=== PATIENT | male | born 1945 | race Two or more races ===

== ENCOUNTER 2024-01-12 10:59 | Inpatient (IN) | payer OTHER ==
[~2024-01-12] VITALS: Ht 162.6 cm; Wt 55.8 kg
--- NOTE | 2024-01-12 12:05 | ED.PDOC ---
General HPI Comments 78-year-old male patient with no past medical history presented with complaints of urinary frequency, dysuria, urinary pressure associated with nausea and vomiting. The vomiting episode happened today at around 0800 hours which did not contain any blood. Patient had associated chills. Patient was recently prescribed Bactrim for similar complaints two weeks ago, which she took for 10 days and then had resolution of symptoms but symptoms again started two days ago. At that time he also had hematuria that resolved, but during this visit he did not complain of any hematuria. He denied any complaints of chest pain, shortness of breath, dizziness, headache. Past medical history No known medical history Past surgical history Denied any surgeries Medication history Does not take any medication Allergic history No known allergies Family history Does not remember Social history Denied smoking, occasional alcohol intake, denied marijuana/any other drug intake ROS Constitutional: Chills No: Fever, Sweats, Weakness, Malaise, Other Cardiovascular: No: Chest Pain, Palpitations, Orthopnea, Paroxysmal Noc. Dyspnea, Edema, Lt Headedness, Other Gastrointestinal: No: Nausea, Vomiting, Abdominal Pain, Diarrhea, Constipation, Melena, Hematochezia, Other Musculoskeletal: No: other, neck pain, shoulder pain, arm pain, back pain, hand pain, leg pain, foot pain Neurological:; No: Weakness, Numbness, Incoordination, Change in speech, Confusion, Seizures Examination General Appearance: Alert, Oriented X3, Cooperative, No acute distress Respiratory: Clear to auscultation, Normal air movement Cardiovascular: Regular rate, Normal S1, Normal S2 Abdominal: Soft, no tenderness Extremities: No cyanosis, No edema, Normal pulses, No tenderness/swelling Skin: No rashes, No breakdown Neuro: Normal speech, tone Attestation note: Dr. Seth: I was the supervising attending for this ED encounter. Please see the resident's notes. I was available for questions and consultations. MDM: Patient presented with the above HPI.---urinary symptoms---workup was initiated. patient was found with the above mentioned diagnosis. Patient was given: Fluids and Zofran and antibiotics Patient ED course and VS have been stabilized. Patient has been reassessed in the ED and remained in a stable condition. Pertinent incidental findings were discussed with the patient and/or family. Patient/family voices understanding and is agreeable with plan. Patient has been observed in the ED adequate length of time to insure improvement/stability. patient was admitted to the medicine team for further evaluation and treatment of their presentation. All the reports of any imaging studies that were ordered by myself were reviewed by myself. Chief Complaint: Urinary Time Seen by MD: 11:12 Reviewed notes: Nurses Notes, Allergies Allergies: Coded Allergies: NO KNOWN ALLERGIES (Unverified , 01/12/24) Home Meds Active Scripts Cephalexin Monohydrate (Cephalexin) 500 Mg Cap, 2 CAP PO TID for 7 Days, #42 CAP Prov:FABIEN RUSSELL MD 01/15/24 Information Source: Patient Mode of Arrival: Ambulatory Past Medical History Past Medical History (Other): Mentioned in the note Constitutional: reports: others (Mentioned in the note) EENTM: reports: others (Mentioned in the note) Respiratory: reports: others (Mentioned in the note) Cardiovascular: reports: others (Mentioned in the note) Gastrointestinal: reports: others (Mentioned in the note) Genitourinary: reports: others (Mentioned in the note) Neurological: reports: others (Mentioned in the note) Musculoskeletal: reports: others (Mentioned in the note) Integumetry: reports: others (Mentioned in the note) Physical Exam General Appearance: Other (Mentioned in the note) HEENT: Other (Mentioned in the note) Neck: Other (Mentioned in the note) Respiratory: Other (Mentioned in the note) Cardiovascular: Other (Mentioned in the note) Breast Exam: Deferred Gastrointestinal: Other (Mentioned in the note) Genitalia: Deferred Pelvic: Deferred Rectal: Other (Mentioned in the note) Extremities: Other (Mentioned in the note) Neurologic: Other (Mentioned in the note) Cerebellar Function: Other (Mentioned in the note) Reflexes: Other (Mentioned in the note) Skin: Other (Mentioned in the note) Lymphatic: Other (Mentioned in the note) Was a procedure done? Was a procedure done?: No Differential Diagnosis Kidney stone (Female): N/A Urinary Problem (Male): UTI, Other (MALE URINARY PROBLEMSDDX BPH, OBSTRUCTING NEOPLASM, BLADDER PATHOLOGY, OBSTRUCTION STONE. PHYMOSIS/PAPRPHYMOSIS, CAUDA EQUINA SYNDROME, UTI.) X-Ray, Labs, Meds, VS Vital Signs Date Time Temp Pulse Resp B/P (MAP) Pulse Ox O2 Delivery O2 Flow Rate FiO2 01/12/24 12:55 105 22 94 Room Air* 0 21 01/12/24 12:54 99.7 105 22 143/81 (101) 94 99.7 01/12/24 11:27 98.7 89 16 151/73 (99) 94 Lab Test 01/12/24 13:53 01/12/24 11:40 01/12/24 10:51 Range/Units Lactic Acid Level 1.1 2.4 *H 0.4-2.0 mmol/L Urine Color Light-yellow Yellow Urine Clarity Turbid H Clear Urine pH 5.5 5.0-9.0 Urine Specific [place] 1.015 1.001-1.035 Urine Protein 1+ H Negative Urine Ketones Negative Negative Urine Blood 2+ H Negative /uL Urine Nitrite Negative Negative Urine Bilirubin Negative Negative Urine Urobilinogen Normal Negative mg/dL Urine Leukocyte Esterase 3+ Negative /uL Urine RBC 19 0 - 3 /hpf Urine WBC 689 0 - 3 /hpf Urine WBC Clumps Present None Seen /hpf Urine Squamous Epithelial Cells Few <5 /hpf Urine Bacteria Few H None Seen /hpf Urine Mucus Few None Seen Urine Glucose Normal Normal mg/dL White Blood Count 19.8 H 4.4-10.8 10^3/uL Red Blood Count 4.89 4.5-5.90 10^6/uL Hemoglobin 14.9 13.5-17.5 g/dL Hematocrit 43.3 41.0-53.0 % Mean Corpuscular Volume 88.6 80.0-100.0 fL Mean Corpuscular Hemoglobin 30.4 28.0-32.0 pg Mean Corpuscular Hemoglobin Concent 34.3 32.0-36.0 g/dL Red Cell Distribution Width 13.9 11.8-14.3 % Platelet Count 354 140-450 10^3/uL Mean Platelet Volume 8.1 6.9-10.8 fL Neutrophils (%) (Auto) 87.9 H 37.0-80.0 % Lymphocytes (%) (Auto) 7.0 L 10.0-50.0 % Monocytes (%) (Auto) 4.7 0.0-12.0 % Eosinophils (%) (Auto) 0.0 0.0-7.0 % Basophils (%) (Auto) 0.4 0.0-2.0 % Neutrophils # (Auto) 17.4 H 1.6-8.6 10 ^3/uL Lymphocytes # (Auto) 1.4 0.4-5.4 10 ^3/uL Monocytes # (Auto) 0.9 0-1.3 10 ^3/uL Eosinophils # (Auto) 0 0-0.8 10 ^3/uL Basophils # (Auto) 0.1 0-0.2 10 ^3/uL Nucleated Red Blood Cells 0.0 % Sodium Level 135 L 136-145 mmol/L Potassium Level 4.0 3.5-5.1 mmol/L Chloride Level 102 98-107 mmol/L Carbon Dioxide Level 24 20-31 mmol/L Anion Gap 9 5-15 Blood Urea Nitrogen 14 9-23 mg/dL Creatinine 1.32 H 0.700-1.30 mg/dL Glomerular Filtration Rate Calc 56 >90 mL/min BUN/Creatinine Ratio 10.6 10.0-20.0 Serum Glucose 127 H 74-106 mg/dL Calcium Level 10.4 8.7-10.4 mg/dL Total Bilirubin 1.2 H 0.2-1.0 mg/dL Aspartate Amino Transferase (AST) 25 13-40 U/L Alanine Aminotransferase (ALT) 29 7-40 U/L Alkaline Phosphatase 112 46-116 U/L Total Protein 8.5 H 5.7-8.2 g/dL Albumin 4.9 H 3.2-4.8 g/dL Microbiology Date/Time Source Procedure Growth Status 01/12/24 11:40 Voided Urine Urine Culture - Final Escherichia coli Complete 01/12/24 10:51 Blood Blood Culture - Final Escherichia coli Complete [place] [address] Ph: [phone] DIAGNOSTIC IMAGING Diagnostic Imaging Report : [id number] Signed PATIENT: PABLITO CORDOBA ACCT: [id number] UNIT: [id number] : 1945 LOC: ER ROOM / BED: / AGE / SEX: 78 / M ADM STATUS: REG ER SERVICE 1137 ORDERING PHYSICIAN: ROYCE LEIVA RESIDENT PROCEDURE(s): ABPL - CT AB PEL WO CON-NO ORAL OR IV REASON: uti ORDER NUMBER(s): [id number], ACCESSION NUMBER(s): [id number] CT ABDOMEN AND PELVIS WITHOUT CONTRAST CLINICAL HISTORY: uti TECHNIQUE: Multiple contiguous axial images of the abdomen and pelvis without intravenous contrast. The images were reformatted degenerate coronal and sagittal reconstructions. All CT scans at this medical facility are performed using dose modulation techniques as appropriate to a performed exam including the following:Automated exposure control was utilized; adjustment of the MA and/or KV according to patient size; and use of iterative reconstruction technique. Radiation Dose Information: CT Dose: CTDI volume is 5.44 mGy. Dose-length product is 316.46 mGy*cm Comparison: None FINDINGS: Evaluation of the abdomen and pelvis is limited without intravenous contrast. There is a 1.0 cm calculus in the left renal pelvis. There is no right renal calculus. There is no evidence of hydronephrosis. There is no evidence of a ureteral calculus or hydroureter. The liver, gallbladder, pancreas, adrenal glands, and spleen appear within normal limits. There is no gross evidence of abdominal lymphadenopathy. There is no free fluid or free air. The stomach appears within normal limits. The small and large bowel loops demonstrate normal caliber. There are multiple diverticula in the sigmoid colon without evidence of acute diverticulitis. The abdominal aorta and IVC appear within normal limits. The bladder is decompressed limiting evaluation. There is circumferential bladder wall thickening. Pelvic organ appears within normal limits. There is no evidence of a pelvic mass or lymphadenopathy. There is no free fluid collection. Lung bases are clear. There is no acute osseous abnormality. IMPRESSION: 1. There is a 1.0 cm calculus in the left renal pelvis without evidence of hydronephrosis. 2. The bladder is decompressed limiting evaluation. The bladder does demonstrate circumferential wall thickening which May relate to cystitis. Clinical correlation is recommended. 3. Sigmoid diverticulosis without evidence of acute diverticulitis. HS:Y ATED BY: JAX BRAMBILA MD DICTATED DATE/TIME: 01/12/241208 SIGNED BY: JAX BRAMBILA MD SIGNED DATE/TIME: 01/12/241208 CC: [place] [address] Ph: [phone] DIAGNOSTIC IMAGING Diagnostic Imaging Report : [id number] Signed PATIENT: PABLITO CORDOBA ACCT: [id number] UNIT: [id number] : 1945 LOC: ER ROOM / BED: / AGE / SEX: 78 / M ADM STATUS: REG ER SERVICE 1137 ORDERING PHYSICIAN: ROYCE LEIVA RESIDENT PROCEDURE(s): CXRP - CHEST PORTABLE REASON: VOMITITING ORDER NUMBER(s): [id number], ACCESSION NUMBER(s): [id number] CHEST RADIOGRAPH Indication: VOMITITING Technique: Single frontal view of the chest was obtained COMPARISON: None FINDINGS: Lines and Tubes: None Lungs: Clear Pleura: No effusion. No pneumothorax. Cardiomediastinal contours: Unremarkable Bones: Unremarkable IMPRESSION: No acute disease. ATED BY: JONATHAN AGUILAR MD DICTATED DATE/TIME: 01/12/241209 SIGNED BY: JONATHAN AGUILAR MD SIGNED DATE/TIME: 01/12/241209 CC: Time of 1ST Reevaluation: 13:00 Reevaluation 1ST: Unchanged Patient Education/Counseling: Diagnosis, Treatment Family Education/Counseling: No Family Present Comments Patient presented with the above HPI- dysuria, frequency, chills, vomiting. workup was initiated including routine labs, urine culture, blood culture, lactic acid levels. Patient was given: IV fluids, [place] [address], urine routine showed evidence of UTI. Was started on IV Rocephin Patient ED course and VS have been stabilized. Patient has been reassessed in the ED and remained in a stable condition. Pertinent incidental findings were discussed with the patient and/or family. Patient/family voices understanding and is agreeable with plan. Patient has been observed in the ED adequate length of time to insure improvement/stability. patient was admitted to the medicine team for further evaluation and treatment of their presentation. Patient needs hydration, further workup with urine culture, blood culture results, evaluation for sepsis. All the reports of any imaging studies that were ordered by myself were reviewed by myself. Departure 1 Departure Time of Disposition: 12:43 Impression: Primary Impression: UTI (urinary tract infection) Additional Impressions: Leukocytosis Sepsis Elevated lactic acid level Disposition: ADMITTED INPATIENT Admit to: Tele Condition: Guarded e-Prescriptions Cephalexin Monohydrate (Cephalexin) 500 Mg Cap 2 CAP PO TID for 7 Days, #42 CAP Prov: FABIEN RUSSELL MD 01/15/24 Discharged With: Self Critical Care Note Critical Care Time?: Yes (45 min-critical care time only) Stability Stability form required: No Heart Score Heart Score: Heart Score Response (Comments) Value History N/A 0 EKG N/A 0 Age N/A 0 Risk Factors N/A 0 Troponin N/A 0 Total 0 ROYCE LEIVA RESIDENT Jan 12, 2024 12:05 THIEN SETH DO Jan 12, 2024 21:45
--- NOTE | 2024-01-12 12:11 | DVH ---
CT ABDOMEN AND PELVIS WITHOUT CONTRAST CLINICAL HISTORY: uti TECHNIQUE: Multiple contiguous axial images of the abdomen and pelvis without intravenous contrast. The images were reformatted degenerate coronal and sagittal reconstructions. All CT scans at this medical facility are performed using dose modulation techniques as appropriate t o a performed exam including the following:Automated exposure control was utilized; adjustment of the MA and/or KV according to patient size; and use of iterative reconstruction technique. Radiation Dose Information: CT Dose: CTDI volume is 5.44 mGy. Dose-length product is 316.46 mGy*cm Comparison: None FINDINGS: Evaluation of the abdomen and pelvis is limited without intravenous contrast. There is a 1.0 cm calculus in the left renal pelvis. There is no right renal calculus. There is no ev idence of hydronephrosis. There is no evidence of a ureteral calculus or hydroureter. The liver, gallbladder, pancreas, adrenal glands, and spleen appear within normal limits. There is no gross evidence of abdominal lymphadenopathy. There is no free fluid or free air. The stomach appears within normal limits. The small and large bowel loops demonstrate normal caliber. There are multiple diverticula in the sigmoid colon without evidence of acute diverticulitis. The abdominal aorta and IVC appear within normal limits. The bladder is decompressed limiting evaluation. There is circumferential bladder wall thickening. Pe lvic organ appears within normal limits. There is no evidence of a pelvic mass or lymphadenopathy. T here is no free fluid collection. Lung bases are clear. There is no acute osseous abnormality. IMPRESSION: 1. There is a 1.0 cm calculus in the left renal pelvis without evidence of hydronephrosis. 2. The bladder is decompressed limiting evaluation. The bladder does demonstrate circumferential wall thickening which May relate to cystitis. Clinical correlation is recommended. 3. Sigmoid diverticulosis without evidence of acute diverticulitis. HS:Y
--- NOTE | 2024-01-12 12:12 | DVH ---
CHEST RADIOGRAPH Indication: VOMITITING Technique: Single frontal view of the chest was obtained COMPARISON: None FINDINGS: Lines and Tubes: None Lungs: Clear Pleura: No effusion. No pneumothorax. Cardiomediastinal contours: Unremarkable Bones: Unremarkable IMPRESSION: No acute disease.
[2024-01-12 12:13] LABS: Urine Bacteria FEW /hpf (None Seen); Urine Blood 2+ /uL (Negative); Urine Clarity Turbid (Clear); Urine Mucus FEW (None Seen); Urine Protein, UAD 1+ (Negative); Urine Specific Gravity 1.015 (1.001-1.035); Urine Urobilinogen Normal (Negative); Urine WBC 689 /hpf (0 - 3); Urine WBC Clumps PRESENT /hpf (None Seen); Urine pH 5.5 (5.0-9.0)
[2024-01-12 12:19] LABS: Urine Color Light-Yellow (Yellow)
[2024-01-12 12:26] LABS: Basophils # (auto) 0.1 10 ^3/uL (0-0.2); Basophils % (auto) 0.4 % (0.0-2.0); Eosinophils # (auto) 0 10 ^3/uL (0-0.8); Hematocrit 43.3 % (41.0-53.0); Hemoglobin 14.9 g/dL (13.5-17.5); Lymphocytes # (auto) 1.4 10 ^3/uL (0.4-5.4); Mean Corpuscular Hemoglobin 30.4 pg (28.0-32.0); Mean Corpuscular Hgb Conc. 34.3 g/dL (32.0-36.0); Mean Corpuscular Volume 88.6 fL (80.0-100.0); Monocytes # (auto) 0.9 10 ^3/uL (0-1.3); Monocytes % (auto) 4.7 % (0.0-12.0); Neutrophils # (auto) 17.4 10 ^3/uL (1.6-8.6); Neutrophils % (auto) 87.9 % (37.0-80.0); Platelet Count (auto) 354 10^3/uL (140-450); Red Blood Cells 4.89 10^6/uL (4.5-5.90); Red Cell Distribution Width 13.9 % (11.8-14.3); White Blood Cell 19.8 10^3/uL (4.4-10.8)
[2024-01-12 12:46] LABS: Albumin 4.9 g/dL (3.2-4.8); Alkaline Phosphatase 112 U/L (46-116); Anion Gap 9 (5-15); Aspartate Aminotransferase 25 U/L (13-40); BUN/Creatinine Ratio 10.6 (10.0-20.0); Bilirubin, Total 1.2 mg/dL (0.2-1.0); Blood Urea Nitrogen 14 mg/dL (9-23); Calcium 10.4 mg/dL (8.7-10.4); Carbon Dioxide 24 mmol/L (20-31); Chloride 102 mmol/L (98-107); Glucose 127 mg/dL (74-106); Sodium 135 mmol/L (136-145); Total Protein 8.5 g/dL (5.7-8.2)
[2024-01-12] MEDS: ONDANSETRON HCL 4 MG/2 ML VIAL IV ONE (12:49)
[2024-01-12 12:50] LABS: Lactic Acid w/Reflex 2.4 mmol/L (0.4-2.0)
[2024-01-12 12:55] VITALS: PULSE 105; RESP 22; O2SAT 94
[2024-01-12] MEDS: SODIUM CHLORIDE 0.9% 1,000 ML IV ONE (13:11)
[2024-01-12 13:12] LABS: Alanine Aminotransferase 29 U/L (7-40)
[2024-01-12] MEDS: cefTRIAXone 1GM/50ML D5W 50 ML IV ONE (13:12)
[2024-01-12] MEDS: SODIUM CHLORIDE 0.9% 1,000 ML IV SCH (15:30)
[2024-01-12] MEDS ORDERED: MORPHINE SULFATE INJ 2 MG/ml SYRG IV PRN (15:30)
[2024-01-12] MEDS ORDERED: ONDANSETRON HCL 4 MG/2 ML VIAL IV PRN (15:30)
[2024-01-12] MEDS ORDERED: HYDROcodone-ACET 5/325MG TAB PO PRN (15:30)
[2024-01-12] MEDS ORDERED: MAALOX PLUS or MAALOX 30 ML PO PRN (15:30)
[2024-01-12] MEDS ORDERED: DOCUSATE SOD 100 MG CAP PO PRN (15:30)
[2024-01-12] MEDS ORDERED: ACETAMINOPHEN 325 MG TAB PO PRN (15:30)
[2024-01-12] MEDS ORDERED: LORazepam 0.5 MG TAB PO PRN (15:30)
--- NOTE | 2024-01-12 15:42 | DVHHP2 ---
History of Present Illness Reason for Visit: weakness dizziness History of Present Illness 78 yo male evaluated in the ed for weakness was evaluated in the ED show to [facility] acute infection suspected UTI source with fevers and tachy cardia triggering a sepsis patient appears to be stable as of now with no acute distress started on abx and recommended for admission and continued treatment for infection n Cardiovascular: HTN Endocrine: Diabetes Review of Systems Constitutional: Yes: Fever, Chills, Weakness; No: Sweats, Malaise, Other Eyes: No: Pain, Vision change, Conjunctivae inflammation, Eyelid inflammation, Other, Redness ENT: No: Ear pain, Ear discharge, Nose pain, Nose discharge, Nose congestion, Mouth pain, Mouth swelling, Throat pain, Throat swelling, Other Respiratory: No: Cough, Dry, Shortness of breath, SOB with excertion, Wheezing, Hemoptysis, Pleuritic Pain, Sputum, Wheezing, Other Cardiovascular: No: Chest Pain, Palpitations, Orthopnea, Paroxysmal Noc. Dyspnea, Edema, Lt Headedness, Other Gastrointestinal: No: Nausea, Vomiting, Abdominal Pain, Diarrhea, Constipation, Melena, Hematochezia, Other Genitourinary: Dysuria, Frequency; No Incontinence, No Hematuria, No Retention, No Other Musculoskeletal: No: other, neck pain, shoulder pain, arm pain, back pain, hand pain, leg pain, foot pain Skin: No: Rash, Lesions, Jaundice, Bruising, Other Neurological: No: Weakness, Numbness, Incoordination, Change in speech, Confusion, Seizures, Other Allergies: Coded Allergies: NO KNOWN ALLERGIES (Unverified , 01/12/24) Exam Vital Signs Vital Signs Date Time Temp Pulse Resp B/P (MAP) Pulse Ox O2 Delivery O2 Flow Rate FiO2 01/12/24 12:55 105 22 94 Room Air* 0 21 01/12/24 12:54 99.7 143/81 (101) 99.7 General Appearance: Alert, Oriented X3 HEENT: Atraumatic, PERRLA Respiratory: Clear to auscultation, Normal air movement Cardiovascular: Regular rate, Normal S1, Normal S2 Abdominal: Normal bowel sounds, Soft Extremities: No clubbing, No cyanosis, No edema Skin: No rashes, No breakdown Neuro: Normal gait, Normal speech Psych/Mental Status: Mood NL Labs/Xrays Labs Test 01/12/24 13:53 01/12/24 11:40 01/12/24 10:51 Range/Units Lactic Acid Level 1.1 0.4-2.0 mmol/L Urine Color Light-yellow Yellow Urine Clarity Turbid H Clear Urine pH 5.5 5.0-9.0 Urine Specific [place] 1.015 1.001-1.035 Urine Protein 1+ H Negative Urine Ketones Negative Negative Urine Blood 2+ H Negative /uL Urine Nitrite Negative Negative Urine Bilirubin Negative Negative Urine Urobilinogen Normal Negative mg/dL Urine Leukocyte Esterase 3+ Negative /uL Urine RBC 19 0 - 3 /hpf Urine WBC 689 0 - 3 /hpf Urine WBC Clumps Present None Seen /hpf Urine Squamous Epithelial Cells Few <5 /hpf Urine Bacteria Few H None Seen /hpf Urine Mucus Few None Seen Urine Glucose Normal Normal mg/dL White Blood Count 19.8 H 4.4-10.8 10^3/uL Red Blood Count 4.89 4.5-5.90 10^6/uL Hemoglobin 14.9 13.5-17.5 g/dL Hematocrit 43.3 41.0-53.0 % Mean Corpuscular Volume 88.6 80.0-100.0 fL Mean Corpuscular Hemoglobin 30.4 28.0-32.0 pg Mean Corpuscular Hemoglobin Concent 34.3 32.0-36.0 g/dL Red Cell Distribution Width 13.9 11.8-14.3 % Platelet Count 354 140-450 10^3/uL Mean Platelet Volume 8.1 6.9-10.8 fL Neutrophils (%) (Auto) 87.9 H 37.0-80.0 % Lymphocytes (%) (Auto) 7.0 L 10.0-50.0 % Monocytes (%) (Auto) 4.7 0.0-12.0 % Eosinophils (%) (Auto) 0.0 0.0-7.0 % Basophils (%) (Auto) 0.4 0.0-2.0 % Neutrophils # (Auto) 17.4 H 1.6-8.6 10 ^3/uL Lymphocytes # (Auto) 1.4 0.4-5.4 10 ^3/uL Monocytes # (Auto) 0.9 0-1.3 10 ^3/uL Eosinophils # (Auto) 0 0-0.8 10 ^3/uL Basophils # (Auto) 0.1 0-0.2 10 ^3/uL Nucleated Red Blood Cells 0.0 % Sodium Level 135 L 136-145 mmol/L Potassium Level 4.0 3.5-5.1 mmol/L Chloride Level 102 98-107 mmol/L Carbon Dioxide Level 24 20-31 mmol/L Anion Gap 9 5-15 Blood Urea Nitrogen 14 9-23 mg/dL Creatinine 1.32 H 0.700-1.30 mg/dL Glomerular Filtration Rate Calc 56 >90 mL/min BUN/Creatinine Ratio 10.6 10.0-20.0 Serum Glucose 127 H 74-106 mg/dL Calcium Level 10.4 8.7-10.4 mg/dL Total Bilirubin 1.2 H 0.2-1.0 mg/dL Aspartate Amino Transferase (AST) 25 13-40 U/L Alanine Aminotransferase (ALT) 29 7-40 U/L Alkaline Phosphatase 112 46-116 U/L Total Protein 8.5 H 5.7-8.2 g/dL Albumin 4.9 H 3.2-4.8 g/dL Assessment/Plan Assessment/Plan Admit Med Surge Sepsis Secondary to UTI Infection bacteria unknown UA positive Urine culture ordered IV hydration IV abx history bph tamsulosin continued DM uncontrolled hyperglycemia iss mild coverage iv fluids c/w home meds Plan discussed with: Patient My Orders Orders - MARIPOSA BENJAMIN MD Procedure Category Date Status Time Ceftriaxone Ivpb [facility] 01/13/24 Transmitted Rocephin 10:00 Admit ADMIT 01/12/24 Transmitted 15:30 Code Status CODE 01/12/24 Transmitted 15:30 Vital Signs [facility] 01/12/24 In Process 15:30 Review Orders With [facility] 01/12/24 In Process Adm. 15:30 Consistent DIET 01/12/24 Transmitted Carb(Ccho)Diabetes Dinner Sodium Chloride 0.9% [facility] 01/12/24 Transmitted 15:30 Lorazepam Tablet [facility] 01/12/24 Transmitted (Ativan Tablet) 15:30 Alum & Mag [facility] 01/12/24 Transmitted Hydrox-Simethicone 15:30 Docusate Sodium [facility] 01/12/24 Transmitted Capsule (Colace 15:30 Acetaminophen Tablet [facility] 01/12/24 Transmitted (Tylenol Tablet) 15:30 Notify Of Changes [facility] 01/12/24 In Process From Base 15:30 Advance Directive [facility] 01/12/24 In Process 15:30 Basic Metabolic Panel LAB 01/13/24 Verified 04:00 Complete Blood Count LAB 01/13/24 Verified 04:00 Patient Condition ORDERS 01/12/24 Transmitted 15:30 Allergies [facility] 01/12/24 In Process 15:30 Hydrocodone-Acet PHA 01/12/24 Transmitted 5/325mg Tab ([place] 15:30 Ondansetron Hcl PHA 01/12/24 Transmitted (Zofran) 15:30 Morphine 2mg Iv Q4hprn PHA 01/12/24 Transmitted 15:30 Notify Md Of Changes ERNA 01/12/24 In Process From Base 15:30 Rhythm Strips Once [facility]RNA 01/12/24 In Process Every Shift 15:30 Oxygen By Nasal RT 01/12/24 Transmitted Cannula 15:30 Problem List: (1) Elevated lactic acid level (2) Leukocytosis (3) Sepsis (4) UTI (urinary tract infection) Date of Service: Jan 12, 2024 Billing Provider: MARIPOSA BENJAMIN MD Common Visit Codes: [id number] INP/OBS CARE (HIGH) MARIPOSA BENJAMIN MD Jan 12, 2024 15:42
[2024-01-12] MEDS ORDERED: DEXTROSE (50%) 50ML SYRG IV PRN (15:45)
[2024-01-12] MEDS: ACCU-CHEK COMFORT CURVE STRIP VI SCH (16:00)
[2024-01-12] MEDS: InsuLIN REG 1unit/0.01ml Soln (100units/ml) SC SCH (16:00)
[2024-01-12 23:38] VITALS: BP 128/87; PULSE 82; RESP 18; TEMP 98.6; O2SAT 93
[2024-01-13] VITALS (7 sets, daily range): BP systolic 127–163; BP diastolic 58–87; PULSE 75–85; RESP 12–20; TEMP 98.5–100.6; O2SAT 92–93
[2024-01-13] MEDS ORDERED: VANCOMYCIN PER PHARMACY 0 MG IV SCH (06:45)
[2024-01-13 07:46] LABS: Basophils # (auto) 0 10 ^3/uL (0-0.2); Basophils % (auto) 0.4 % (0.0-2.0); Eosinophils # (auto) 0 10 ^3/uL (0-0.8); Eosinophils % (auto) 0.1 % (0.0-7.0); Hematocrit 35.8 % (41.0-53.0); Hemoglobin 12.3 g/dL (13.5-17.5); Lymphocytes # (auto) 0.7 10 ^3/uL (0.4-5.4); Mean Corpuscular Hgb Conc. 34.3 g/dL (32.0-36.0); Mean Corpuscular Volume 87.6 fL (80.0-100.0); Monocytes # (auto) 0.7 10 ^3/uL (0-1.3); Monocytes % (auto) 7.1 % (0.0-12.0); Neutrophils # (auto) 8.7 10 ^3/uL (1.6-8.6); Neutrophils % (auto) 85.4 % (37.0-80.0); Platelet Count (auto) 238 10^3/uL (140-450); Red Blood Cells 4.09 10^6/uL (4.5-5.90); Red Cell Distribution Width 13.9 % (11.8-14.3); White Blood Cell 10.2 10^3/uL (4.4-10.8)
[2024-01-13 07:47] LABS: Chloride 107 mmol/L (98-107); Potassium 4.2 mmol/L (3.5-5.1); Sodium 139 mmol/L (136-145)
[2024-01-13 07:48] LABS: Anion Gap 7 (5-15); Calcium 9.3 mg/dL (8.7-10.4); Carbon Dioxide 25 mmol/L (20-31)
[2024-01-13 07:53] LABS: BUN/Creatinine Ratio 14.8 (10.0-20.0); Blood Urea Nitrogen 18 mg/dL (9-23); Glucose 102 mg/dL (74-106)
[2024-01-13] MEDS: VANCOMYCIN 1.75GM/350ML 350 ML IV ONE (08:29)
[2024-01-13] MEDS: cefTRIAXone 1GM/50ML D5W 50 ML IV SCH (11:42)
--- NOTE | 2024-01-13 15:14 | DVHPN2 ---
Subjective I am assuming the care of the patient from today onwards who was under the care of the hospitalist team. This is a follow up from 78-year-old male with a no significant past medical history except macular degeneration, who initially presented to hospital with low-grade fever burning urination for last few days. Patient stated that he was seen by his primary care physician for blood in the urine about a week ago-given some medication Bere's resolved. But then patient started having difficulty in urination degenerative urgency as well as burning urination found to have sepsis can do to UTI as well as Gram-negative bacteremia. Patient currently denies any fevers chills denies any burning urination, but still complaining of urinary urgency and frequency. Patient denies any previous episode of similar kind. Reviewed: Care Plan Changes from previous H/P or p: No Changes Eyes: No Pain, No Vision change, No Conjunctivae inflammation, No Eyelid inflammation, No Other, No Redness ENT: No Ear pain, No Ear discharge, No Nose pain, No Nose discharge, No Nose congestion, No Mouth pain, No Mouth swelling, No Throat pain, No Throat swelling, No Other Cardiovascular: No Chest Pain, No Palpitations, No Orthopnea, No Paroxysmal Noc. Dyspnea, No Edema, No Lt Headedness, No Other Respiratory: No Cough, No Dry, No Shortness of breath, No SOB with excertion, No Wheezing, No Hemoptysis, No Pleuritic Pain, No Sputum, No Other Gastrointestinal: No Nausea, No Vomiting, No Abdominal Pain, No Diarrhea, No Constipation, No Melena, No Hematochezia, No Other Genitourinary: Dysuria, Frequency; No Incontinence, No Hematuria, No Retention, No Other Musculoskeletal: No other, No neck pain, No shoulder pain, No arm pain, No back pain, No hand pain, No leg pain, No foot pain Skin: No Rash, No Lesions, No Jaundice, No Bruising, No Other Objective Vitals Vital Signs Date Time Temp Pulse Resp B/P (MAP) Pulse Ox O2 Delivery O2 Flow Rate FiO2 01/13/24 12:43 99.6 79 12 127/70 (89) 92 99.6 01/13/24 08:13 Room Air* 0 21 Intake/Output Intake and Output 01/13/24 07:00 Intake Total 160 ml Balance 160 ml Intake Oral 160 ml Exam HEENT pupils are reactive Neck is supple CVS S1-S2 regular rate and rhythm Respiratory clear GI positive positive bowel sounds 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 Medications Current Medications Medications Dose Ordered Sig/Brittany Route Start Time Stop Time Status Last Admin Dose Admin Ceftriaxone Sodium 50 ml @ 100 mls/hr DAILY IV 01/13/24 10:00 01/13/24 11:42 100 MLS/HR Sodium Chloride 1,000 ml @ 60 mls/hr [id number] IV 01/12/24 15:30 01/13/24 00:06 60 MLS/HR Lorazepam 0.5 mg Q6HP PRN PO 01/12/24 15:30 Al Hydrox/Mg Hydrox/Simethicone 30 ml Q6HP PRN PO 01/12/24 15:30 Docusate Sodium 100 mg BIDPRN PRN PO 01/12/24 15:30 Acetaminophen 650 mg Q6HP PRN PO 01/12/24 15:30 Acetaminophen/ Hydrocodone Bitart 1 tab Q4HP PRN PO 01/12/24 15:30 Ondansetron HCl 4 mg Q4HP PRN IV 01/12/24 15:30 Morphine Sulfate 2 mg Q4HPRN PRN IV 01/12/24 15:30 Diagnostic Test (Pha) 1 strip IQ4HR 01/12/24 16:00 01/13/24 11:45 1 STRIP Insulin Human Regular IQ4HR SC 01/12/24 16:00 Dextrose 50 ml UD PRN IV 01/12/24 15:45 Vancomycin HCl 0 ml @ 0 mls/hr UD IV 01/13/24 06:45 Vancomycin HCl 150 ml @ 150 mls/hr Q12H IV 01/13/24 20:00 Laboratory Results Laboratory Tests 01/13/24 07:10 Chemistry Test 01/13/24 07:10 Calcium Level 9.3 mg/dL (8.7-10.4) Urinalysis Test 01/12/24 11:40 Urine Color Light-yellow (Yellow) Urine Clarity Turbid (Clear) H Urine pH 5.5 (5.0-9.0) Urine Specific [place] 1.015 (1.001-1.035) Urine Protein 1+ (Negative) H Urine Ketones Negative (Negative) Urine Blood 2+ /uL (Negative) H Urine Nitrite Negative (Negative) Urine Bilirubin Negative (Negative) Urine Urobilinogen Normal mg/dL (Negative) Urine Leukocyte Esterase 3+ /uL (Negative) Urine RBC 19 /hpf (0 - 3) Urine WBC 689 /hpf (0 - 3) Urine WBC Clumps Present /hpf (None Seen) Urine Squamous Epithelial Cells Few /hpf (<5) Urine Bacteria Few /hpf (None Seen) H Urine Mucus Few (None Seen) Urine Glucose Normal mg/dL (Normal) Microbiology Microbiology Date/Time Source Procedure Growth Status 01/12/24 11:40 Voided Urine Urine Culture - Preliminary Resulted 01/12/24 10:51 Blood Blood Culture - Preliminary Resulted Assessment/Plan Assessment/Plan 78-year-old male who initiated the hospital with general can see, urgency, dysuria found to have 1. Sepsis secondary to Gram-negative UTI 2. Gram-negative UTI 3. Gram-negative bacteremia 4. Leukocytosis 5. Lactic acidosis 6. History of macular degeneration status post eye surgery -repeat blood culture, continue broad-spectrum IV antibiotics, infectious disease consultation -physical therapy evaluation and treatment. Plan discussed with: Patient Date of Service: Jan 13, 2024 Billing Provider: FABIEN RUSSELL MD Common Visit Codes: NOT BILLABLE FABIEN RUSSELL MD Jan 13, 2024 15:14
[2024-01-13] MEDS: VANCOMYCIN 750mg/150ml 150 ML IV SCH (20:02)
[2024-01-14] VITALS (8 sets, daily range): BP systolic 114–150; BP diastolic 64–83; PULSE 62–85; RESP 16–20; TEMP 98–98.7; O2SAT 90–96
--- NOTE | 2024-01-14 14:35 | DVHPN2 ---
Subjective Overnight events noted. Patient denies any complaints Reviewed: Care Plan Changes from previous H/P or p: No Changes Eyes: No Pain, No Vision change, No Conjunctivae inflammation, No Eyelid inflammation, No Other, No Redness ENT: No Ear pain, No Ear discharge, No Nose pain, No Nose discharge, No Nose congestion, No Mouth pain, No Mouth swelling, No Throat pain, No Throat swelling, No Other Cardiovascular: No Chest Pain, No Palpitations, No Orthopnea, No Paroxysmal Noc. Dyspnea, No Edema, No Lt Headedness, No Other Respiratory: No Cough, No Dry, No Shortness of breath, No SOB with excertion, No Wheezing, No Hemoptysis, No Pleuritic Pain, No Sputum, No Other Gastrointestinal: No Nausea, No Vomiting, No Abdominal Pain, No Diarrhea, No Constipation, No Melena, No Hematochezia, No Other Genitourinary: Dysuria, Frequency; No Incontinence, No Hematuria, No Retention, No Other Musculoskeletal: No other, No neck pain, No shoulder pain, No arm pain, No back pain, No hand pain, No leg pain, No foot pain Skin: No Rash, No Lesions, No Jaundice, No Bruising, No Other Objective Vitals Vital Signs Date Time Temp Pulse Resp B/P (MAP) Pulse Ox O2 Delivery O2 Flow Rate FiO2 01/14/24 13:00 98.0 62 16 149/76 (100) 93 98.0 01/14/24 08:00 Room Air* 0 21 Intake/Output Intake and Output 01/14/24 07:00 Intake Total 2020 ml Output Total 1675 ml Balance 345 ml Intake Oral 520 ml IV Total 1500 ml Output Urine Total 1675 ml Stool Total 0 ml Exam HEENT pupils are reactive Neck is supple CVS S1-S2 regular rate and rhythm Respiratory clear GI positive positive bowel sounds 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 Medications Current Medications Medications Dose Ordered Sig/Brittany Route Start Time Stop Time Status Last Admin Dose Admin Ceftriaxone Sodium 50 ml @ 100 mls/hr DAILY IV 01/13/24 10:00 01/14/24 11:31 100 MLS/HR Sodium Chloride 1,000 ml @ 60 mls/hr [id number] IV 01/12/24 15:30 01/13/24 20:04 60 MLS/HR Lorazepam 0.5 mg Q6HP PRN PO 01/12/24 15:30 Al Hydrox/Mg Hydrox/Simethicone 30 ml Q6HP PRN PO 01/12/24 15:30 Docusate Sodium 100 mg BIDPRN PRN PO 01/12/24 15:30 Acetaminophen 650 mg Q6HP PRN PO 01/12/24 15:30 Acetaminophen/ Hydrocodone Bitart 1 tab Q4HP PRN PO 01/12/24 15:30 Ondansetron HCl 4 mg Q4HP PRN IV 01/12/24 15:30 Morphine Sulfate 2 mg Q4HPRN PRN IV 01/12/24 15:30 Diagnostic Test (Pha) 1 strip IQ4HR 01/12/24 16:00 01/14/24 12:00 1 STRIP Insulin Human Regular IQ4HR SC 01/12/24 16:00 Dextrose 50 ml UD PRN IV 01/12/24 15:45 Vancomycin HCl 0 ml @ 0 mls/hr UD IV 01/13/24 06:45 Vancomycin HCl 150 ml @ 150 mls/hr Q12H IV 01/13/24 20:00 01/14/24 09:03 150 MLS/HR Laboratory Results Laboratory Tests 01/13/24 07:10 01/14/24 05:45 Urinalysis Test 01/12/24 11:40 Urine Color Light-yellow (Yellow) Urine Clarity Turbid (Clear) H Urine pH 5.5 (5.0-9.0) Urine Specific [place] 1.015 (1.001-1.035) Urine Protein 1+ (Negative) H Urine Ketones Negative (Negative) Urine Blood 2+ /uL (Negative) H Urine Nitrite Negative (Negative) Urine Bilirubin Negative (Negative) Urine Urobilinogen Normal mg/dL (Negative) Urine Leukocyte Esterase 3+ /uL (Negative) Urine RBC 19 /hpf (0 - 3) Urine WBC 689 /hpf (0 - 3) Urine WBC Clumps Present /hpf (None Seen) Urine Squamous Epithelial Cells Few /hpf (<5) Urine Bacteria Few /hpf (None Seen) H Urine Mucus Few (None Seen) Urine Glucose Normal mg/dL (Normal) Microbiology Microbiology Date/Time Source Procedure Growth Status 01/12/24 11:40 Voided Urine Urine Culture - Final Escherichia coli Complete 01/12/24 10:51 Blood Blood Culture - Preliminary Resulted Assessment/Plan Assessment/Plan 78-year-old male who initiated the hospital with general can see, urgency, dysuria found to have 1. Sepsis secondary to Gram-negative UTI 2. Gram-negative UTI 3. Gram-negative bacteremia, repeat blood cultures are pending 4. Leukocytosis 5. Lactic acidosis 6. History of macular degeneration status post eye surgery -repeat blood culture, continue broad-spectrum IV antibiotics, infectious disease consultation -physical therapy evaluation and treatment. Plan discussed with: Patient My Orders Orders - FABIEN RUSSELL MD Procedure Category Date Status Time Blood Culture VISHAL 01/14/24 Logged 13:55 Date of Service: Jan 14, 2024 Billing Provider: FABIEN RUSSELL MD Common Visit Codes: NOT BILLABLE FABIEN RUSSELL MD Jan 14, 2024 14:35
--- NOTE | 2024-01-14 16:39 | DVHINCON2 ---
Date of service: Jan 14, [address] Russell Reason for Consultation GNR bacteremia History of Present Illness This is a 78 yo male presents to the hospital with complaints of low-grade fever and burning sensation while urinating for the last few days. Patient reported that he was see by his PCP hematuria about a week-ago. he was treated with medication and resolved. patient then started to have urinary urgency and burning sensation. It was diagnosed as he had sepsis , suspected UTI and gram - negative bacteremia. patient still complains of urinary urgency and frequency. Past Medical History Cardiovascular: HTN Endocrine: Diabetes Family History: Hypertension G8 FATHER Allergies: Coded Allergies: NO KNOWN ALLERGIES (Unverified , 01/12/24) Allergies NONE Home Meds Active Scripts Cephalexin Monohydrate (Cephalexin) 500 Mg Cap, 2 CAP PO TID for 7 Days, #42 CAP Prov:FABIEN RUSSELL MD 01/15/24 Current Medications Current Medications Medications (Trade) Dose Ordered Sig/Brittany Route PRN Reason Start Time Stop Time Status Last Admin Vancomycin HCl 150 ml @ 150 mls/hr Q12H IV 01/13/24 20:00 01/14/24 09:03 Review of Systems Constitutional: Yes: Fever, Chills, Weakness; No: Sweats, Malaise, Other Eyes: No: Pain, Vision change, Conjunctivae inflammation, Eyelid inflammation, Other, Redness ENT: No: Ear pain, Ear discharge, Nose pain, Nose discharge, Nose congestion, Mouth pain, Mouth swelling, Throat pain, Throat swelling, Other Respiratory: No: Cough, Dry, Shortness of breath, SOB with excertion, Wheezing, Hemoptysis, Pleuritic Pain, Sputum, Wheezing, Other Cardiovascular: No: Chest Pain, Palpitations, Orthopnea, Paroxysmal Noc. Dyspn ea, Edema, Lt Headedness, Other Gastrointestinal: No: Nausea, Vomiting, Abdominal Pain, Diarrhea, Constipation, Melena, Hematochezia, Other Genitourinary: Dysuria, Frequency; No Incontinence, No Hematuria, No Retention, No Other Musculoskeletal: No: other, neck pain, shoulder pain, arm pain, back pain, hand pain, leg pain, foot pain Skin: No: Rash, Lesions, Jaundice, Bruising, Other Neurological: No: Weakness, Numbness, Incoordination, Change in speech, Confusion, Seizures, Other Vital Signs Vital Signs Date Time Temp Pulse Resp B/P (MAP) Pulse Ox O2 Delivery O2 Flow Rate FiO2 01/14/24 13:00 98.0 62 16 149/76 (100) 93 98.0 01/14/24 08:00 Room Air* 0 21 Physical Exam General Appearance: Alert, Oriented X3 HEENT: Atraumatic, PERRLA Respiratory: Clear to auscultation, Normal air movement Cardiovascular: Regular rate, Normal S1, Normal S2 Abdominal: Normal bowel sounds, Soft Extremities: No clubbing, No cyanosis, No edema Skin: No rashes, No breakdown Neuro: Normal gait, Normal speech Psych/Mental Status: Mood NL Labs/Diagnostic Data Labs Test 01/14/24 11:18 01/14/24 05:45 01/13/24 07:10 01/12/24 13:53 Range/Units POC Glucose 79 70-106 mg/dl Creatinine 0.97 0.700-1.30 mg/dL Glomerular Filtration Rate Calc 81 >90 mL/min White Blood Count 10.2 # 4.4-10.8 10^3/uL Red Blood Count 4.09 L 4.5-5.90 10^6/uL Hemoglobin 12.3 #L 13.5-17.5 g/dL Hematocrit 35.8 #L 41.0-53.0 % Mean Corpuscular Volume 87.6 80.0-100.0 fL Mean Corpuscular Hemoglobin 30.0 28.0-32.0 pg Mean Corpuscular Hemoglobin Concent 34.3 32.0-36.0 g/dL Red Cell Distribution Width 13.9 11.8-14.3 % Platelet Count 238 140-450 10^3/uL Mean Platelet Volume 8.2 6.9-10.8 fL Neutrophils (%) (Auto) 85.4 H 37.0-80.0 % Lymphocytes (%) (Auto) 7.0 L 10.0-50.0 % Monocytes (%) (Auto) 7.1 0.0-12.0 % Eosinophils (%) (Auto) 0.1 0.0-7.0 % Basophils (%) (Auto) 0.4 0.0-2.0 % Neutrophils # (Auto) 8.7 H 1.6-8.6 10 ^3/uL Lymphocytes # (Auto) 0.7 0.4-5.4 10 ^3/uL Monocytes # (Auto) 0.7 0-1.3 10 ^3/uL Eosinophils # (Auto) 0 0-0.8 10 ^3/uL Basophils # (Auto) 0 0-0.2 10 ^3/uL Nucleated Red Blood Cells 0.0 % Sodium Level 139 136-145 mmol/L Potassium Level 4.2 3.5-5.1 mmol/L Chloride Level 107 98-107 mmol/L Carbon Dioxide Level 25 20-31 mmol/L Anion Gap 7 5-15 Blood Urea Nitrogen 18 9-23 mg/dL BUN/Creatinine Ratio 14.8 10.0-20.0 Serum Glucose 102 74-106 mg/dL Calcium Level 9.3 8.7-10.4 mg/dL Lactic Acid Level 1.1 0.4-2.0 mmol/L Test 01/12/24 11:40 01/12/24 10:51 Range/Units Urine Color Light-yellow Yellow Urine Clarity Turbid H Clear Urine pH 5.5 5.0-9.0 Urine Specific [place] 1.015 1.001-1.035 Urine Protein 1+ H Negative Urine Ketones Negative Negative Urine Blood 2+ H Negative /uL Urine Nitrite Negative Negative Urine Bilirubin Negative Negative Urine Urobilinogen Normal Negative mg/dL Urine Leukocyte Esterase 3+ Negative /uL Urine RBC 19 0 - 3 /hpf Urine WBC 689 0 - 3 /hpf Urine WBC Clumps Present None Seen /hpf Urine Squamous Epithelial Cells Few <5 /hpf Urine Bacteria Few H None Seen /hpf Urine Mucus Few None Seen Urine Glucose Normal Normal mg/dL Total Bilirubin 1.2 H 0.2-1.0 mg/dL Aspartate Amino Transferase (AST) 25 13-40 U/L Alanine Aminotransferase (ALT) 29 7-40 U/L Alkaline Phosphatase 112 46-116 U/L Total Protein 8.5 H 5.7-8.2 g/dL Albumin 4.9 H 3.2-4.8 g/dL Microbiology Date/Time Source Procedure Growth Status 01/12/24 11:40 Voided Urine Urine Culture - Final Escherichia coli Complete 01/12/24 10:51 Blood Blood Culture - Preliminary Resulted Assessment A 78-year-old male who presents to hospital with complaints of urgency, dysuria found to have GNR bacteremia: Sepsis secondary to Gram-negative UTI ( urosepsis) Elevated lactic acid level Leukocytosis Sepsis History of macular degeneration status post eye surgery Recommendations 01/11 Blood cultures are reviewed shows GNR bacteria present. Follow ID and sensitivity 01/11 Urine culture reviewed : GNR UA positive positive continue broad-spectrum IV antibiotics : 01/12 ceftriaxone continue Vancomycin follow lac tic acid IV fluids thank you for consult plan discussed with Dr Russell Plan discussed with: Patient SUKH HESS MD Jan 14, 2024 16:39
[2024-01-15 01:00] VITALS: BP 164/79; PULSE 66; RESP 18; TEMP 98; O2SAT 95
[2024-01-15 05:00] VITALS: BP 126/81; PULSE 64; RESP 18; TEMP 98.2; O2SAT 94
[2024-01-15 08:30] VITALS: BP 165/82; PULSE 67; RESP 16; TEMP 98.1; O2SAT 96
[2024-01-15 12:00] VITALS: BP 165/89; PULSE 72; RESP 16; TEMP 98.2; O2SAT 96
--- NOTE | 2024-01-15 13:36 | DVHPN2 ---
Progress Note - Dictate Date Seen: Jan 15, 2024 Medical Necessity Reason Pt with a Central, PICC or Fol: No Subjective patient is seen and evaluated . No complaints hematuria resolved 01/11 Blood cultures are reviewed shows E. coli bacteria present. 01/11 Urine culture reviewed : E coli 01/12 - start date ceftriaxone 01/12 - Vancomycin vital signs Vital Sign Date Time Temp Pulse Resp B/P (MAP) Pulse Ox O2 Delivery O2 Flow Rate FiO2 01/15/24 12:00 98.2 72 16 165/89 (114) 96 98.2 01/15/24 08:00 Room Air* 0 21 Total Intake and Output 01/14/24 01/14/24 01/15/24 15:00 23:00 07:00 Intake Total 200 ml 1320 ml 400 ml Output Total 801 ml 1025 ml Balance 200 ml 519 ml -625 ml medications Current Medications Medications Dose Ordered Sig/Brittany Route Start Time Stop Time Status Last Admin Dose Admin Ceftriaxone Sodium 50 ml @ 100 mls/hr DAILY IV 01/13/24 10:00 01/15/24 08:33 100 MLS/HR Sodium Chloride 1,000 ml @ 60 mls/hr [id number] IV 01/12/24 15:30 01/14/24 18:21 60 MLS/HR Lorazepam 0.5 mg Q6HP PRN PO 01/12/24 15:30 Al Hydrox/Mg Hydrox/Simethicone 30 ml Q6HP PRN PO 01/12/24 15:30 Docusate Sodium 100 mg BIDPRN PRN PO 01/12/24 15:30 Acetaminophen 650 mg Q6HP PRN PO 01/12/24 15:30 Acetaminophen/ Hydrocodone Bitart 1 tab Q4HP PRN PO 01/12/24 15:30 Ondansetron HCl 4 mg Q4HP PRN IV 01/12/24 15:30 Morphine Sulfate 2 mg Q4HPRN PRN IV 01/12/24 15:30 Diagnostic Test (Pha) 1 strip IQ4HR 01/12/24 16:00 01/15/24 08:00 1 STRIP Insulin Human Regular IQ4HR SC 01/12/24 16:00 Dextrose 50 ml UD PRN IV 01/12/24 15:45 objective General alert and oriented HEENT: Atraumatic Neck: No swelling Lungs: Equal air entry and clear to auscultation Cardiovascular: S2 heard no murmur Abdomen: Soft nontender, no organomegaly, nondistended Neuro: Alert and oriented, no focal deficit Psych: Normal mood and affect laboratory and microbiology Laboratory Tests 01/14/24 05:45 01/13/24 07:10 Test 01/13/24 07:10 Range/Units Serum Glucose 102 74-106 mg/dL Assessment/Plan A 78-year-old male who presents to hospital with complaints of urgency, dysuria found to have E.coli bacteremia: Sepsis secondary to Gram-negative UTI Elevated lactic acid level: resolved Leukocytosis resolved Sepsis History of macular degeneration status post eye surgery Recommendations 01/11 Blood cultures are reviewed shows E. coli bacteria present. Sensitivity reviewed 01/11 Urine culture reviewed : E coli UA positive continue ceftriaxone: S to CTX Once pt is stable for DC will switch to oral antibiotics oral [id number] TID to complete total 10 days course, f/u lab with pcp Discontinue Vancomycin thank you for the opportunity to care for this patient. Plan discussed with: Patient, Other SUKH HESS MD Jan 15, 2024 13:36
[2024-01-15 16:33] VITALS: BP 163/96; PULSE 67; RESP 18; TEMP 98.3; O2SAT 94
[2024-01-15] MEDS ORDERED: CEPH500C PO (17:04)
--- NOTE | 2024-01-15 17:08 | DVHDS2 ---
Discharge Summary Date of Admission Jan 12, 2024 at 15:30 Date of Discharge: Jan 15, 2024 Labs/Diagnostic Data: Laboratory Results Test 01/15/24 08:32 01/14/24 05:45 01/13/24 07:10 01/12/24 13:53 POC Glucose 168 mg/dl (70-106) Creatinine 0.97 mg/dL (0.700-1.30) Glomerular Filtration Rate Calc 81 mL/min (>90) White Blood Count 10.2 10^3/uL (4.4-10.8) Red Blood Count 4.09 10^6/uL (4.5-5.90) Hemoglobin 12.3 g/dL (13.5-17.5) Hematocrit 35.8 % (41.0-53.0) Mean Corpuscular Volume 87.6 fL (80.0-100.0) Mean Corpuscular Hemoglobin 30.0 pg (28.0-32.0) Mean Corpuscular Hemoglobin Concent 34.3 g/dL (32.0-36.0) Red Cell Distribution Width 13.9 % (11.8-14.3) Platelet Count 238 10^3/uL (140-450) Mean Platelet Volume 8.2 fL (6.9-10.8) Neutrophils (%) (Auto) 85.4 % (37.0-80.0) Lymphocytes (%) (Auto) 7.0 % (10.0-50.0) Monocytes (%) (Auto) 7.1 % (0.0-12.0) Eosinophils (%) (Auto) 0.1 % (0.0-7.0) Basophils (%) (Auto) 0.4 % (0.0-2.0) Neutrophils # (Auto) 8.7 10 ^3/uL (1.6-8.6) Lymphocytes # (Auto) 0.7 10 ^3/uL (0.4-5.4) Monocytes # (Auto) 0.7 10 ^3/uL (0-1.3) Eosinophils # (Auto) 0 10 ^3/uL (0-0.8) Basophils # (Auto) 0 10 ^3/uL (0-0.2) Nucleated Red Blood Cells 0.0 % Sodium Level 139 mmol/L (136-145) Potassium Level 4.2 mmol/L (3.5-5.1) Chloride Level 107 mmol/L (98-107) Carbon Dioxide Level 25 mmol/L (20-31) Anion Gap 7 (5-15) Blood Urea Nitrogen 18 mg/dL (9-23) BUN/Creatinine Ratio 14.8 (10.0-20.0) Serum Glucose 102 mg/dL (74-106) Calcium Level 9.3 mg/dL (8.7-10.4) Lactic Acid Level 1.1 mmol/L (0.4-2.0) Test 01/12/24 11:40 01/12/24 10:51 Urine Color Light-yellow (Yellow) Urine Clarity Turbid (Clear) Urine pH 5.5 (5.0-9.0) Urine Specific [place] 1.015 (1.001-1.035) Urine Protein 1+ (Negative) Urine Ketones Negative (Negative) Urine Blood 2+ /uL (Negative) Urine Nitrite Negative (Negative) Urine Bilirubin Negative (Negative) Urine Urobilinogen Normal mg/dL (Negative) Urine Leukocyte Esterase 3+ /uL (Negative) Urine RBC 19 /hpf (0 - 3) Urine WBC 689 /hpf (0 - 3) Urine WBC Clumps Present /hpf (None Seen) Urine Squamous Epithelial Cells Few /hpf (<5) Urine Bacteria Few /hpf (None Seen) Urine Mucus Few (None Seen) Urine Glucose Normal mg/dL (Normal) Total Bilirubin 1.2 mg/dL (0.2-1.0) Aspartate Amino Transferase (AST) 25 U/L (13-40) Alanine Aminotransferase (ALT) 29 U/L (7-40) Alkaline Phosphatase 112 U/L (46-116) Total Protein 8.5 g/dL (5.7-8.2) Albumin 4.9 g/dL (3.2-4.8) Other Laboratory Tests 01/14/24 05:45 01/13/24 07:10 Brief Hx & Hospital Course: 78-year-old male who initially presented to the hospital with generalized weakness, dysuria found to have sepsis secondary to Gram-negative UTI. Patient is also was positive for Gram-negative bacteremia repeat blood cultures are negative. Patient was given IV antibiotics. Patient's blood culture came back E coli as well as urine culture came back E coli which is sensitive to ceftriaxone. Infectious Disease cleared the patient to be discharged. Patient's WBC count is normal and lactic acidosis resolved. Patient is being discharged under stable condition on Keflex 1 g t.i.d. for seven more days. Condition at Discharge: Stable Final Diagnosis/Problems List 78-year-old male who initiated the hospital with general can see, urgency, dysuria found to have 1. Sepsis secondary to Gram-negative UTI 2. Gram-negative UTI 3. Gram-negative bacteremia, repeat blood cultures are pending 4. Leukocytosis 5. Lactic acidosis 6. History of macular degeneration status post eye surgery Discharge Disposition: Home SNF Discharge Will this Physician continue t: No Discharge Instruct/Medications Diet: Regular Activity: No Restrictions, As Tolerated Follow Up/Referral: Follow up with the PCP in 1-2 weeks Follow up with Sami Marroquin in one to two weeks Medications: Keflex 1 g t.i.d. for seven more days Discharge Statement: "Patient was advised to return to the ER or call 911 if any headaches, dizziness, shortness of breath, chest pain, abdominal pain, bleeding, fevers, or worsening of medical condition. Patient was counseled about treatment plan, medications, possible side effects, patientverbalized understanding. All questions were answered to the best of my ability. This discharge took greater then 30 minutes in planning, reviewing documentation, counseling the patient, and discussing with other team members." ASSESSMENT ASSESSMENT Assessment 78-year-old male who initiated the hospital with general can see, urgency, dysuria found to have 1. Sepsis secondary to Gram-negative UTI 2. Gram-negative UTI 3. Gram-negative bacteremia, repeat blood cultures are pending 4. Leukocytosis 5. Lactic acidosis 6. History of macular degeneration status post eye surgery Date of Service: Jan 15, 2024 Billing Provider: FABIEN RUSSELL MD Common Visit Codes: NOT BILLABLE FABIEN RUSSELL MD Jan 15, 2024 17:08
== END 2024-01-15 19:28 | disposition home or self-care (01) | DRG 871 ==
LOC: ER 10:59 → OVERFLOW 15:30 → WEST WING 23:23
PROVIDERS: ADMIT Hospitalist; ATTEND Internal Medicine
DX: A41.50 Gram-negative sepsis, unspecified (principal); N17.0 Acute kidney failure with tubular necrosis; N39.0 Urinary tract infection, site not specified; E87.20 Acidosis, unspecified; I10 Essential (primary) hypertension; E11.65 Type 2 diabetes mellitus with hyperglycemia; N40.0 Benign prostatic hyperplasia without lower urinary tract symptoms; B96.20 Unspecified Escherichia coli [E. coli] as the cause of diseases classified elsewhere; Z82.49 Family history of ischemic heart disease and other diseases of the circulatory system
CPT/HCPCS: 36415; 71045; 74176; 80048; 80053; 81001; 82565; 82962; 83605; 85025; 87040; 87086; 87088; 87186; 96365; 96375; 99291; G0378; J2405

== ENCOUNTER 2024-03-05 09:17 | Emergency (ER) | payer OTHER ==
[~2024-03-05] VITALS: Ht 162.6 cm; Wt 64.0 kg
[~2024-03-05 09:17] MED LIST: CEPH500C PO
[2024-03-05 09:30] VITALS: BP 151/80; PULSE 83; RESP 16; TEMP 97.6; O2SAT 96
[2024-03-05 09:51] LABS: Urine Bacteria FEW /hpf (None Seen); Urine Blood 3+ /uL (Negative); Urine Clarity Ex.Turbid (Clear); Urine Color Light-Orange (Yellow); Urine Mucus FEW (None Seen); Urine Protein, UAD 2+ (Negative); Urine Specific Gravity 1.025 (1.001-1.035); Urine Squamous Epithelial Cell None Seen /hpf (<5); Urine Urobilinogen Normal (Negative); Urine WBC 3479 /hpf (0 - 3); Urine WBC Clumps PRESENT /hpf (None Seen)
[2024-03-05] MEDS ORDERED: CIPR-173 PO (10:08)
--- NOTE | 2024-03-05 10:12 | ED.PDOC ---
General HPI Comments A 78-YEAR-OLD MALE WITH NO PMHx PRESENTS WITH A CHIEF COMPLAINT OF URINARY FREQUENCY, DYSURIA, AND INABILITY TO VOID X SINCE December. PATIENT STATES THAT HE KNOWS THAT HE HAS A URINARY TRACT INFECTION AND THAT HE WAS RECENTLY TREATED FOR ONE NOT THAT LONG AGO AND DOES NOT REMEMBER THE ANTIBIOTICS HE WAS PRESCRIBED. PATIENT DENIES FEVER, ABD PAIN, LOW BACK PAIN, NAUSEA, VOMITING, BLOOD IN THE URINE AND OTHER COMPLAINTS. NO OTHER SYMPTOMS OR MODIFYING FACTORS PRESENT AT THIS TIME. Chief Complaint: Urinary Time Seen by MD: 10:05 Reviewed notes: Nurses Notes, Medications, Allergies Allergies: Coded Allergies: NO KNOWN ALLERGIES (Unverified , 01/12/24) Home Meds Active Scripts Ciprofloxacin Hcl (Cipro) 500 Mg Tab, 1 TAB PO BID, #20 TAB Prov:AGUSTÍN OWENS 03/05/24 Cephalexin Monohydrate (Cephalexin) 500 Mg Cap, 2 CAP PO TID for 7 Days, #42 CAP Prov:FABIEN RUSSELL MD 01/15/24 Information Source: Patient Mode of Arrival: Ambulatory Severity: Moderate Inability to void: None Timing: Days Duration: Since onset, Days Prehospital treatment: None Onset: Spontaneous Symptoms: Dysuria, Frequency, Inability to void History of: UTI Location: None Penile discharge: None Modifying factors: None associated signs and symptoms: Dysuria, Frequency, Urgency Past Medical History PAST MEDICAL HISTORY: Denies Surgical History: Denies all surgeries Family History Family History: Reviewed,noncontributory to illness Social History Smoker: Non-Smoker Alcohol: Denies ETOH Use Drugs: Denies Drug Use Lives In: Home Constitutional: denies: chills, diaphoresis, fatigue, fever, malaise, sweats, weakness, others EENTM: denies: blurred vision, double vision, ear bleeding, ear discharge, ear drainage, ear pain, ear ringing, eye pain, eye redness, hearing loss, mouth pain, mouth swelling, nasal discharge, nose bleeding, nose congestion, nose pain, photophobia, tearing, throat pain, throat swelling, voice changes, others Respiratory: denies: cough, hemoptysis, orthopnea, SOB at rest, shortness of breath, SOB with excertion, stridor, wheezing, others Cardiovascular: denies: chest pain, dizzy spells, diaphoresis, Dyspnea on exertion, edema, irregular heart beat, left arm pain, lightheadedness, palpitations, PND, syncope, others Gastrointestinal: denies: abdomen distended, abdominal pain, blood streaked bowels, constipated, diarrhea, dysphagia, difficulty swallowing, hematemesis, melena, nausea, poor appetite, poor fluid intake, rectal bleeding, rectal pain, vomiting, others Genitourinary: reports: dysuria, frequency, others (INABILITY TO VOID ); denies: burning, flank pain, hematuria, incontinence, penile discharge, penile sore, pain, testicle pain, testicle swelling, urgency Neurological: denies: dizziness, fainting, headache, left sided numbness, left sided weakness, numbness, paresthesia, pre-existing deficit, right sided numbness, right sided weakness, seizure, speech problems, tingling, tremors, weakness, others Musculoskeletal: denies: back pain, gout, joint pain, joint swelling, muscle pain, muscle stiffness, neck pain, others Integumetry: denies: bruises, change in color, change in hair/nails, dryness, laceration, lesions, lumps, rash, wounds, others Allergic/Immunocompromised: denies: Difficulty Healing, Frequent Infections, Hives, Itching, others Hematologic/Lymphatic: denies: anemia, blood clots, easy bleeding, easy bruising, swollen glands, others Endocrine: denies: excessive hunger, excessive sweating, excessive thirst, excessive urination, flushing, intolerance to cold, intolerance to heat, unexplained weight gain, unexplained weight loss, others Psychiatric: denies: anxiety, bipolar disorder, depression, hopeless, panic disorder, schizophrenia, sleepless, suicidal, others All Other Systems: Reviewed and Negative Physical Exam General Appearance: No Apparent Distress, Normal HEENT: Normal ENT Inspection, PERRL/EOMI, Pharynx Normal, TMs Normal Neck: Full Range of Motion, Non-Tender, Normal, Normal Inspection Respiratory: Chest Non-Tender, Lungs Clear, No Accessory Muscle Use, No Respiratory Distress, Normal Breath Sounds Cardiovascular: No Edema, No JVD, No Murmur, No Gallop, Normal Peripheral Pulses, Regular Rate/Rhythm Breast Exam: Deferred Gastrointestinal: No Organomegaly, Non Tender, No Pulsatile Mass, Normal Bowel Sounds, Soft Genitalia: Deferred Pelvic: Deferred Rectal: Deferred Extremities: No calf tenderness, Normal capillary refill, Normal inspection, Normal range of motion, Non-tender, No pedal edema Musculoskeletal : Apperance: Normal Neurologic: Alert, featherer II-XII nml as Tested, No Motor Deficits, Normal Affect, Normal Mood, No Sensory Deficits Cerebellar Function: Normal Reflexes: Normal Skin: Dry, Normal Color, Warm Peripheral Pulses: 2+ carotid (R), 2+ carotid (L) Lymphatic: No Adenopathy Was a procedure done? Was a procedure done?: No Differential Diagnosis Kidney stone (Female): N/A Urinary Problem (Male): Urethritis, Urinary Retention, Urolithiasis, UTI X-Ray, Labs, Meds, VS Vital Signs Date Time Temp Pulse Resp B/P (MAP) Pulse Ox O2 Delivery O2 Flow Rate FiO2 03/05/24 09:30 97.6 83 16 151/80 (103) 96 03/05/24 09:30 97.6 83 16 151/80 (103) 96 97.6 Lab Test 03/05/24 09:28 Range/Units Urine Color Light-orange Yellow Urine Clarity Ex.turbid Clear Urine pH 6.0 5.0-9.0 Urine Specific [place] 1.025 1.001-1.035 Urine Protein 2+ H Negative Urine Ketones Negative Negative Urine Blood 3+ H Negative /uL Urine Nitrite Negative Negative Urine Bilirubin Negative Negative Urine Urobilinogen Normal Negative mg/dL Urine Leukocyte Esterase 3+ Negative /uL Urine RBC 133 0 - 3 /hpf Urine WBC 3479 0 - 3 /hpf Urine WBC Clumps Present None Seen /hpf Urine Squamous Epithelial Cells None seen <5 /hpf Urine Bacteria Few H None Seen /hpf Urine Mucus Few None Seen Urine Glucose Normal Normal mg/dL Current Medications Medications (Trade) Dose Ordered Sig/Brittany Route Start Time Stop Time Status Last Admin Ceftriaxone Sodium (Rocephin) 1,000 mg ONCE ONCE IM 03/05/24 10:00 03/05/24 10:01 DC 03/05/24 10:24 X-Ray, Labs, Meds, VS Comment EXTERNAL MEDICAL RECORDS REVIEWED: [NONE] INDEPENDENT HISTORIANS: [NONE] SOCIAL DETERMINANTS OF HEALTH: [NONE] LABS ORDERED: NONE REVIEWED AND INTERPRETED RESULTS: NONE IMAGING ORDERED: NONE TREATMENTS ORDERED: ROCEPHIN 1G IM PROCEDURES PERFORMED: NONE CRITICAL CARE TIME: NONE I HAVE DISCUSSED THE PATIENT WITH THE ATTENDING PHYSICIAN DR. CHU AND HE AGREES WITH THE PATIENT'S PLAN OF CARE AND DISPOSITION. GIVEN THE HISTORY AND PRESENT ILLNESS OF THE PATIENT, AFTER REVIEWING LABS, IMAGING, AND COURSE OF TREATMENT ADMINISTERED DURING THEIR ED VISIT, THERE IS LOW SUSPICION FOR RED FLAG FINDINGS. BASED ON HISTORY OF PRESENT ILLNESS, AND PHYSICAL EXAM, PATIENT WILL BE DISCHARGED HOME. DISCUSSED PLAN FOR DISCHARGE HOME WITH RX. MEDICATION WARNINGS GIVEN. SHARED DECISION MAKING: DISCUSSED WITH PATIENT THAT THEIR WORKUP WAS NORMAL. PATIENT INSTRUCTED TO FOLLOW UP WITH PRIMARY CARE PROVIDER IN 1-2 DAYS FOR RE- EVALUATION OF SYMPTOMS. PATIENT VERBALIZES UNDERSTANDING TO RETURN TO ED FOR NEW OR WORSENING SYMPTOMS OR IF FOLLOW UP WITH PCP CANNOT BE OBTAINED. PATIENT FEELS COMFORTABLE GOING HOME AT THIS TIME. ALL QUESTIONS ADDRESSED AT TIME OF DISCHARGE. Time of 1ST Reevaluation: 10:35 Reevaluation 1ST: Unchanged Patient Education/Counseling: Diagnosis, Treatment, Prognosis Family Education/Counseling: Diagnosis, Treatment, Need For Follow Up Medical Screening: No EMC Exist At This Time Departure 1 Departure Time of Disposition: 11:00 Impression: Primary Impression: UTI (urinary tract infection) Qualified Codes: N39.0 - Urinary tract infection, site not specified Disposition: 01 HOME / SELF CARE / HOMELESS Condition: Stable Additional Instructions: FOLLOW UP WITH YOUR PCP IN 1-2 DAYS. RETURN TO THE ER IF YOUR SYMPTOMS WORSEN. e-Prescriptions Ciprofloxacin Hcl (Cipro) 500 Mg Tab 1 TAB PO BID, #20 TAB Prov: AGUSTÍN OWENS 03/05/24 Discharged With: Self Critical Care Note Critical Care Time?: No Stability Stability form required: No Heart Score Heart Score: Heart Score Response (Comments) Value History N/A 0 EKG N/A 0 Age N/A 0 Risk Factors N/A 0 Troponin N/A 0 Total 0 I personally scribed for AGUSTÍN OWENS ([email or web address]) on 03/05/24 at 10:12. Electronically submitted by Matthias Cano ([email or web address]). AGUSTÍN OWENS Mar 05, 2024 10:12
[2024-03-05] MEDS: cefTRIAXone SOD 1,000 MG VL IM ONE (10:24)
== END 2024-03-05 10:43 | disposition home or self-care (01) ==
LOC: ER 09:17
DX: N39.0 Urinary tract infection, site not specified (principal); R35.0 Frequency of micturition; R30.0 Dysuria
CPT/HCPCS: 81001; 87086; 87088; 87186; 96372; 99283; J0696